=== PATIENT | female | born 1990 | race American Indian/Alaskan Native ===

== ENCOUNTER 2017-07-01 06:40 | Emergency (ER) | payer MEDICAID, OTHER ==
[2017-07-01 06:50] VITALS: BMI 29.7
--- NOTE | 2017-07-01 06:54 | OBHP ---
Datetime: 07/01/2017 06:50 IP Adm Impression: Term, intrauterine IP Chief Complaint Other: b/l leg swolleb Admit Comment, IP Provider: at 37weeks nathaly with c/o b/l leg swollen from few days nd got worse last night, no hedache or blurry vision, no ctxs, v, lof+fm obhx 1 x pmh de med pn all nkda psh de soh de ve closed a/p at 37weeks b/l swollen leg pihwork up bp monitor cont carline and efm cont close obser Pelvic Type - PN: Adequate Extremities - PN: Normal Abdomen - PN: Normal Back - PN: Normal Breast - PN: Normal Lungs - PN: Normal Heart - PN: Normal Thyroid - PN: Normal Neurologic - PN: Normal HEENT - PN: Normal General - PN: Normal FHR - Baseline A Provider: 130 Contraction Comments Provider: none Comments, ACOG Physical Exam: b/l pedal edema, no calf ten Vital Signs Provider: Reviewed NICHD Variability Prov Fetus A: Moderate 6-25bpm NICHD Accel Fetus A IP Provider: 15X15 FHR Category Provider Fetus A: Category I Dilatation, Provider: 0 Effacement, Provider: 0 Station, Provider: -3 Genitourinary Exam: Normal DTRs - PN: Normal
[2017-07-01 08:10] LABS: HEMOGLOBIN 9.9 g/dL (11.0-16.0); MEAN CELL VOLUME 79.8 fL (81.0-99.0); MEAN CORPUSCULAR HEMOGLOBIN 26.6 pg (27.0-31.0); MEAN CORPUSCULAR HGB CONC 33.4 g/dL (33.0-37.0); MEAN PLATELET VOLUME 8.9 fL (7.2-11.7); RBC 3.7 Mil/uL (3.80-5.20); RED CELL DISTRIBUTION WIDTH 14.7 % (11.5-14.5); WHITE BLOOD COUNT 5.8 K/uL (4.8-10.8)
[2017-07-01 08:16] LABS: INR 0.9; PROTHROMBIN TIME 10.1 SECONDS (9.7-12.2)
[2017-07-01 08:17] LABS: SQUAMOUS EPITHIAL 9 /hpf (0-5); URINE BILIRUBIN NEGATIVE (NEGATIVE); URINE BLOOD NEGATIVE (NEGATIVE); URINE CLARITY Clear (Clear); URINE COLOR Yellow (YELLOW); URINE GLUCOSE (UA) NORMAL (Normal); URINE LEUKOCYTE ESTERASE TRACE Leu/uL (Negative); URINE PROTEIN NEGATIVE (NEGATIVE); URINE UROBILINOGEN NORMAL mg/dL (0.2-1.0)
[2017-07-01 09:13] LABS: ALB/GLOB RATIO 0.9 (1.0-2.1); ALT/SGPT 23 U/L (9-52); AST/SGOT 28 U/L (14-36); BLOOD UREA NITROGEN 6 mg/dL (7-17); CALCIUM 8.5 mg/dl (8.6-10.4); GFR AFRICAN-AMERICAN > 60; GFR NON-AFRICAN AMERICAN > 60
--- NOTE | 2017-07-01 09:27 | OBPN ---
Datetime: 07/01/2017 09:20 IP Progress Plan: Discharge Contraction Comments Provider: occasional FHR - Baseline A Provider: 140 IP Progress Note Comment: Eleonora receive din LDR#1 - somnolent. reports headache is improved. H/O m igraine in the past; feels a bit like a migraine. On the average drinks 3-4 bottles of water daily. ( +) AFM. Denies LOF, VB, Ctx. Labs reviewed - all negative/wnl Assessment: 26 y. P1, 37w 1d, c/o swelling to feet, and migraine-like headache. PIH workup negati ve. BP wnl. Category 1 tracing. Clinically stable. Plan: 1) Discharge home 2) F/U Dr. Carl, 07/03/17 3) Reviewed S/S labor. NICHD Accel Fetus A IP Provider: 15X15 NICHD Variability Prov Fetus A: Moderate 6-25bpm Dilatation, Provider: deferred NICHD Decel Fetus A IP Provider: None Datetime: 07/01/2017 06:50 Vital Signs Provider: Reviewed FHR Category Provider Fetus A: Category I Effacement, Provider: 0 Station, Provider: -3
== END 2017-07-01 09:35 | disposition home or self-care (01) ==
LOC: C.EROB 06:40
DX: O26.893 Other specified pregnancy related conditions, third trimester (principal); Z3A.37 37 weeks gestation of pregnancy; M79.89 Other specified soft tissue disorders

== ENCOUNTER 2017-07-03 12:41 | Inpatient (IN) | payer OTHER ==
--- NOTE | 2017-07-03 13:19 | OBADHP ---
Datetime: 07/03/2017 13:13 Admit Comment, IP Provider: at 37.3weeks came with c/o discharge/fluid coming yesterday and ctx s irrg, 3/0, no vb, +fm. obhx 1 x pmh den med pnv all nkda psh den soch den sse +nitrazine,+ pooling ??? a/p at 37.3weeks pprom admit to l_d npo/ivf labs mau cytotec cont carline and efm anticipate Pelvic Type - PN: Adequate Extremities - PN: Normal Abdomen - PN: Normal Back - PN: Normal Breast - PN: Normal Lungs - PN: Normal Heart - PN: Normal Thyroid - PN: Normal Neurologic - PN: Normal HEENT - PN: Normal General - PN: Normal FHR - Baseline A Provider: 130 Amniotic Fluid Color, Provider: Clear Membranes, Provider: Ruptured Contraction Comments Provider: irrg Comments, ACOG Physical Exam: gravid,no tede ext no edema,no calf Nitrazine Provider: Positive IP Hx Assessment: The History has been Reviewed and is Current Vital Signs Provider: Reviewed; Within Normal Limits IP Chief Complaint: Uterine contractions; Suspected ruptured membranes NICHD Variability Prov Fetus A: Moderate 6-25bpm NICHD Accel Fetus A IP Provider: 15X15 FHR Category Provider Fetus A: Category I Dilatation, Provider: 1 Effacement, Provider: 50 Station, Provider: -3 Genitourinary Exam: Normal DTRs - PN: Normal EGA AdmitDate IP: 37.3 IP Adm Impression: Term, intrauterine ; Ruptured Membranes IP Admit Plan: Admit to unit; Initiate labor induction protocol Datetime: 07/01/2017 09:20 NICHD Decel Fetus A IP Provider: None Datetime: 07/01/2017 06:50 IP Chief Complaint Other: b/l leg swolleb
[2017-07-03 13:21] VITALS: BMI 28.8
[2017-07-03] MEDS ORDERED: Nalbuphine 20 mg/ml Inj (1 ml) IVP PRN (13:30)
[2017-07-03] MEDS ORDERED: Penicillin G 5 Million Unit Vial IVPB ONE ×2 (13:30→13:42)
[2017-07-03] MEDS ORDERED: Lactated Ringer's 1,000 ML IV SCH (13:30)
[2017-07-03 13:55] LABS: BASO % 0.3 % (0.0-2.0); EOS # 0.1 K/uL (0.0-0.7); EOS % 0.9 % (0.0-4.0); LYMPH # 1.3 K/uL (1.0-4.3); LYMPH % 22.4 % (20.0-40.0); MEAN CELL VOLUME 79.3 fL (81.0-99.0); MEAN CORPUSCULAR HEMOGLOBIN 26.4 pg (27.0-31.0); MEAN CORPUSCULAR HGB CONC 33.3 g/dL (33.0-37.0); MEAN PLATELET VOLUME 9.5 fL (7.2-11.7); MONO # 0.4 K/uL (0.0-0.8); MONO % 7.6 % (0.0-10.0); NEUT % 68.8 % (50.0-75.0); RBC 3.8 Mil/uL (3.80-5.20); WHITE BLOOD COUNT 5.8 K/uL (4.8-10.8)
[2017-07-03 14:10] LABS: SQUAMOUS EPITHIAL 8 /hpf (0-5); URINE BILIRUBIN NEGATIVE (NEGATIVE); URINE BLOOD NEGATIVE (NEGATIVE); URINE CLARITY Clear (Clear); URINE COLOR Yellow (YELLOW); URINE GLUCOSE (UA) NORMAL (Normal); URINE LEUKOCYTE ESTERASE NEG Leu/uL (Negative); URINE PROTEIN NEGATIVE (NEGATIVE); URINE UROBILINOGEN NORMAL mg/dL (0.2-1.0)
[2017-07-03 14:31] LABS: ALB/GLOB RATIO 1.1 (1.0-2.1); ALBUMIN 3.4 g/dL (3.5-5.0); ALT/SGPT 22 U/L (9-52); AST/SGOT 27 U/L (14-36); BLOOD UREA NITROGEN 9 mg/dL (7-17); CALCIUM 8.6 mg/dl (8.6-10.4); GFR AFRICAN-AMERICAN > 60; GFR NON-AFRICAN AMERICAN > 60
[2017-07-03] MEDS ORDERED: Oxytocin 30 UNIT 30 UNITS/500 ML BAG IV PRN (17:06)
[2017-07-03] MEDS ORDERED: Tdap Vaccine 0.5 ml Vial (10-64 yrs) IM ONE (18:13)
[2017-07-03] MEDS ORDERED: Oxycodone/Acetaminophen 5/325 mg Tab PO PRN ×2 (18:13)
[2017-07-03] MEDS ORDERED: Oxytocin 30 UNIT 30 UNITS/500 ML BAG IV SCH (18:15)
[2017-07-03] MEDS ORDERED: Nalbuphine 20 mg/ml Inj (1 ml) ONE (18:32)
--- NOTE | 2017-07-03 20:44 | OBDS ---
MATERNAL INFORMATION Provider Comments: Meseret Private pateint baby deliverd in [place]. endometroum clean 9/9 cord gas sent no com LABOR SUMMARY EDC: 07/21/2017 00:00 No. Babies in Womb: 1 Attempted: No LABOR INFORMATION Cervical Ripening Agents: Cytotec @ 50 mcg po Group B Beta Strep: Positive MEMBRANES Membranes Rupture Method: Spontaneous (Annotations: PT STATES SHE HAD A HUGE GUSH AT 330AM ON 8 WHILE GOING TO BATHROOM) Rupture of Membranes: 07/03/2017 03:30 Length of Rupture (hrs): 17.03 Amniotic Fluid Color: Clear Amniotic Fluid Amount: Scant Amniotic Fluid Odor: Normal VAGINAL DELIVERY Laceration Extension: N/A Laceration Type: None Sponge Count Correct: N/A Sharps Count Correct: N/A BABY A INFORMATION Infant Delivery Date/Time: 07/03/2017 20:32 : N/A SHOULDER DYSTOCIA BABY A Infant Delivery Date/Time: 07/03/2017 20:32 PRESENTATION/POSITION BABY A Presentation: Cephalic Cephalic Presentation: Vertex Vertex Position: Left Occipital Anterior PLACENTA INFORMATION BABY A Placenta Method of Delivery: Spontaneous Placenta Status: Delivered INFORMATION BABY A Gestational Age at Delivery: 37.3 Gestational Status: Sex: Male IDENTIFICATION/MEDS BABY A ID Band Number: [id number] Sensor Number: [id number] WEIGHT/LENGTH BABY A Birthweight (gms): 2755 Weight (lb): 6 Infant Weight (oz): 1 Length Inches: 19.00 Infant Length cms: 48.3 CORD INFORMATION BABY A Nuchal Cord : N/A
[2017-07-04 08:16] VITALS: RESP 18
[2017-07-04 08:31] LABS: HEMOGLOBIN 9.4 g/dL (11.0-16.0); MEAN CELL VOLUME 79.9 fL (81.0-99.0); MEAN CORPUSCULAR HEMOGLOBIN 26.6 pg (27.0-31.0); MEAN CORPUSCULAR HGB CONC 33.4 g/dL (33.0-37.0); MEAN PLATELET VOLUME 8.7 fL (7.2-11.7); RBC 3.55 Mil/uL (3.80-5.20); RED CELL DISTRIBUTION WIDTH 14.7 % (11.5-14.5)
[2017-07-04 08:37] LABS: WHITE BLOOD COUNT 9.1 K/uL (4.8-10.8)
--- NOTE | 2017-07-04 09:04 | OBPPN ---
Datetime: 07/04/2017 09:00 PP Pain Prov: Within normal limits PP Nausea Prov: Denies PP Flatus Prov: Yes PP Abdomen/Uterus Prov: Normal PP Lochia Prov: Normal PP Extremities Prov: Normal PP Comments Phys Exam Prov: fudius below umblicus ext no edema,no clf ten PP Impression Prov: Normal progression PP Plan Prov: Continue present management PP Progress Note Prov: pt was seen at bed side, pain under control,no n/v, tolrating deit , voiding, min lochia ppd#1 s/p cont pp care cont pain management encourage ambulation Vital Signs Provider PP: Reviewed; Within Normal Limits
--- NOTE | 2017-07-05 06:29 | OBPPN ---
Datetime: 07/05/2017 06:27 PP Pain Prov: Within normal limits PP Nausea Prov: Denies PP Flatus Prov: Yes PP Abdomen/Uterus Prov: Normal PP Lochia Prov: Normal PP Extremities Prov: Normal PP Comments Phys Exam Prov: fudus below umb ext no edema,no calf ten PP Impression Prov: Normal progression PP Plan Prov: Discharge PP Progress Note Prov: pt was seen at beed side, pain under control,no n./v, tolerating deit,voiding ,min lochia, fltus+ ppd#2 s/p dc home no sex motrin prn f/un in 6week Vital Signs Provider PP: Reviewed; Within Normal Limits
--- NOTE | 2017-07-05 06:31 | OBDCSUM ---
Datetime: 07/05/2017 06:28 Discharged to, Provider: Home Follow up at, Provider: 3we Discharge Diagnosis, Provider: Term Delivered Follow up in weeks, Provider: pmd Discharge Comment, Provider: dc home no sex motrin prn f/un in 6week Discharge Diagnosis Prov Other: 37 we
[2017-07-05 19:40] VITALS: BP 114/70; PULSE 80; TEMP 97.5; O2SAT 100
== END 2017-07-05 15:10 | disposition home or self-care (01) | DRG 372 ==
LOC: C.EROB 12:41 → C.4D 13:11 → C.4M 22:16
PROVIDERS: ADMIT Obstetrics & Gynecology; ATTEND Obstetrics & Gynecology
PROC: 10E0XZZ Delivery of Products of Conception, External Approach (ICD-10-PCS; principal; 2017-07-03)
DX: O42.02 Full-term premature rupture of membranes, onset of labor within 24 hours of rupture (principal); O99.824 Streptococcus B carrier state complicating childbirth; Z3A.37 37 weeks gestation of pregnancy; Z37.0 Single live birth

== ENCOUNTER 2018-02-10 18:43 | Emergency (ER) | payer OTHER ==
[2018-02-10 18:43] VITALS: BMI 28.8
--- NOTE | 2018-02-10 20:37 | C.PDOC ---
History Of Present Illness 27 year old female, whose social history includes smoking, presents to the ED for evaluation of left-sided chest pain associated with deep breathing which began one week ago. Patient states her symptoms have been intermittent, and have been progressively worsening. Patient also reports a tingling sensation to her left arm and left side of her face. Patient also reports a twitching sensation to the left side of her lip. She reports slight dizziness, which has currently resolved. She has not taken any medicine for symptoms. She denies fever, chills, palpitations, cough, nausea, vomiting, diarrhea, constipation, urinary symptoms, [place] travel, recent sick contacts. Patient admits to smoking around 4-5 cigarettes per day. Denies drug use. Denies family cardiac history. Patient is currently on her menstrual cycle which began yesterday. Patient states she is not , but has been taking vitamins. Time Seen by Provider: 02/10/18 19:08 Chief Complaint (Nursing): Chest Pain History Per: Patient History/Exam Limitations: no limitations Onset/Duration Of Symptoms: Intermittent Episodes, Other (one week ) Current Symptoms Are (Timing): Worse Quality: "Pain" Recent travel outside of the [place]: No Additional History Per: Patient Past Medical History Reviewed: Historical Data, Nursing Documentation, Vital Signs Vital Signs: Last Vital Signs Temp 98.6 F 02/10/18 19:30 Pulse 65 02/10/18 19:30 Resp 16 02/10/18 19:30 BP 117/71 02/10/18 19:30 Pulse Ox 100 02/10/18 19:30 - Medical History PMH: No Chronic Diseases Denies: Chronic Kidney Disease Surgical History: No Surg Hx - [facility] Procedures DELIVERY OF PRODUCTS OF CONCEPTION, EXTERNAL APPROACH (07/03/17) Family History: States: Unknown Family Hx - Social History Hx Tobacco Use: Yes Hx Alcohol Use: No Hx Substance Use: No - Immunization History Hx Tetanus Toxoid Vaccination: No Hx Influenza Vaccination: No (doesn't remember) Hx Pneumococcal Vaccination: No Review Of Systems Constitutional: Negative for: Fever, Chills Cardiovascular: Positive for: Chest Pain (left-sided ). Negative for: Palpitations Gastrointestinal: Negative for: Nausea, Vomiting, Diarrhea Genitourinary: Negative for: Dysuria, Frequency, Hematuria Neurological: Positive for: Dizziness, Other (tingling sensation to left arm and left side of face ) Physical Exam - Physical Exam Appears: Non-toxic, No Acute Distress Skin: Normal Color, Warm, Dry Head: Atraumatic, Normacephalic Eye(s): bilateral: Normal Inspection Oral Mucosa: Moist Neck: Supple Chest: Symmetrical, No Deformity, Tenderness (along left costochondral border) Cardiovascular: Rhythm Regular, No Murmur Respiratory: Normal Breath Sounds, No Rales, No Rhonchi, No Wheezing Gastrointestinal/Abdominal: Soft, No Tenderness, No Guarding, No Rebound Extremity: Normal ROM, Capillary Refill (less than 2 seconds ) Neurological/Psych: Oriented x3, Normal Speech, Normal Cognition ED Course And Treatment ECG: Interpreted By Me, Viewed By Me ECG Rhythm: Sinus Rhythm Interpretation Of ECG: Normal Sinus Rhythm at rate 79bpm. Normal intervals. Normal axis. No ST elevations or depressions. Rate From EC O2 Sat by Pulse Oximetry: 100 (on RA) Pulse Ox Interpretation: Normal Medical Decision Making Medical Decision Making: Progress: CXR and test ordered. CXR results are negative, as read by me. On reassessment, patient is resting comfortably, showing no signs of distress and is stable for discharge. I discussed all results with the patient. Patient informed that her symptoms are likely not cardiac-related given that she has low risk factors. Patient will be prescribed Naproxen for pain. She is advised to f/u with her PMD within 1-2 days for further evaluation and/or return to the ED if symptoms persist or worsen. Disposition Counseled Patient/Family Regarding: Studies Performed, Diagnosis, Need For Followup - Disposition Referrals: [facility] [Outside] [facility] [Outside] Disposition: HOME/ ROUTINE Disposition Time: 21:56 Condition: GOOD Additional Instructions: TITUS GALEANO, thank you for letting us take care of you today. Your provider was Gabriela Goldberg MD and you were treated for CHEST PAIN , NUMBNESS TO LEFT ARM. The emergency medical care you received today was directed at your acute symptoms. If you were prescribed any medication, please fill it and take as directed. It may take several days for your symptoms to resolve. Return to the Emergency Department if your symptoms worsen, do not improve, or if you have any other problems. Please contact your doctor or call one of the physicians/clinics you have been referred to that are listed on the Patient Visit Information form that is included in your discharge packet. Bring any paperwork you were given at discharge with you along with any medications you are taking to your follow up visit. Our treatment cannot replace ongoing medical care by a primary care provider outside of the emergency department. Thank you for allowing the [facility] team to be part of your care today. If you had an X-Ray or CT scan: A Radiologist will review the ED reading if any change in treatment is needed we will contact you. Prescriptions: Naproxen [Naprosyn] 500 mg PO BID #30 tablet Instructions: Costochondritis (DC) Forms: [employer] (Khmer), General Discharge Instructions - POA Present On Arrival: None - Clinical Impression Clinical Impression: Chest wall pain - Scribe Statement The provider has reviewed the documentation as recorded by the Scribe (Bridget Yusuf) Provider Attestation: All medical record entries made by the Scribe were at my direction and personally dictated by me. I have reviewed the chart and agree that the record accurately reflects my personal performance of the history, physical exam, medical decision making, and the department course for this patient. I have also personally directed, reviewed, and agree with the discharge instructions and disposition.
[2018-02-10] MEDS ORDERED: Naproxen 275 mg Tab PO STA (22:00)
[2018-02-10] MEDS ORDERED: Naproxen 550 mg Tab PO ONE (22:08)
[2018-02-10 22:17] VITALS: BP 116/81; PULSE 69; RESP 16; TEMP 99; O2SAT 99
--- NOTE | 2018-02-11 10:27 | RAD ---
Date of service: 02/10/2018 HISTORY: chest pain COMPARISON: Comparison chest 09/20/2014. TECHNIQUE: Chest PA and lateral FINDINGS: LUNGS: No active pulmonary disease. PLEURA: No significant pleural effusion identified. No pneumothorax apparent. CARDIOVASCULAR: No aortic atherosclerotic calcification present. Normal cardiac size. No pulmonary vascular congestion. OSSEOUS STRUCTURES: No significant abnormalities. VISUALIZED UPPER ABDOMEN: Normal. OTHER FINDINGS: None. IMPRESSION: No active disease.
== END 2018-02-10 22:16 | disposition home or self-care (01) ==
LOC: C.ER 18:43
DX: R07.89 Other chest pain (principal); Z87.891 Personal history of nicotine dependence